=== PATIENT | male | born 2000 | race Caucasian/White ===

== ENCOUNTER → 2024-04-06 | Outpatient (CLI) | payer OTHER, SELFPAY | END | disposition home or self-care (01) | PROVIDERS: Referring Provider Otolaryngology Otolaryngology/Facial Plastic Surgery; Visit Provider Otolaryngology Otolaryngology/Facial Plastic Surgery | DX: T78.40XA Allergy, unspecified, initial encounter (principal) | CPT/HCPCS: 36415 ==

== ENCOUNTER 2025-05-20 07:00 | Emergency (ER) | payer OTHER, SELFPAY ==
[2025-05-20 07:01] VITALS: BP 137/81; PULSE 78; RESP 16; TEMP 36.9; O2SAT 99; BMI 29.5
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
[2025-05-20 08:37] VITALS: BP 127/73; PULSE 47; RESP 16; O2SAT 100
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
[2025-05-20 09:35] VITALS: BP 127/73; PULSE 47; RESP 16; TEMP 37; O2SAT 100
== END 2025-05-20 09:36 | disposition home or self-care (01) ==
PROVIDERS: Emergency Provider Emergency Medicine; Visit Provider Emergency Medicine
DX: S09.90XA Unspecified injury of head, initial encounter (principal); S61.412A Laceration without foreign body of left hand, initial encounter; V48.6XXA Car passenger injured in noncollision transport accident in traffic accident, initial encounter; Y92.410 Unspecified street and highway as the place of occurrence of the external cause; S60.512A Abrasion of left hand, initial encounter; Z23 Encounter for immunization
CPT/HCPCS: 70450; 90715; 99282